=== PATIENT | female | born 1980 | race Caucasian/White ===

== ENCOUNTER 2021-02-01 14:17 | Emergency (ER) | payer OTHER ==
[~2021-02-01] VITALS: Ht 160 cm; Wt 57.8 kg
[2021-02-01] MEDS ORDERED: LIDOCAINE 2%/EPI 1:100,000 20 ML VIAL. IJ ONE (16:45)
--- NOTE | 2021-02-01 17:21 | PHYS DOC ---
Past History Past Medical History: Abscess Past Surgical History: No Surgical History Alcohol Use: None General Adult EDM: Chief Complaint: SKIN PROBLEM HPI: HPI: Patient is a 41 year old female who presents with abscess on her genitalia. Patient reports a history of Bartholin gland cyst in the past. She states this one presented 3-4 days ago. She rates her pain 9/10 and nonradiating. She reports associated cramping near the area of swelling. She denies fever, chills, dysuria, hematuria or any drainage thus far. Review of Systems: Review of Systems: ROS negative except as mentioned in HPI. Current Medications: Current Meds: Current Medications Medications (Trade) Dose Ordered Sig/Evy Start Time Stop Time Status Last Admin Dose Admin Lidocaine/ Epinephrine (Xylocaine 2%-Epi 1:100,000) 20 ml 1X ONCE 02/01/21 16:45 02/01/21 16:46 DC 02/01/21 16:43 20 ML Allergies: Allergies: Allergies Coded Allergies Type Severity Reaction Last Updated Verified No Known Drug Allergies 02/01/21 No Physical Exam: PE: Constitutional: Well developed, well nourished, patient appears uncomfortable on exam bed, non-toxic appearance. Cardiovascular: Heart rate regular rhythm, no murmur. Lungs & Thorax: Bilateral breath sounds clear to auscultation. Abdomen: Bowel sounds normal, soft, no tenderness, no masses, no pulsatile masses. Skin: Warm, dry, no erythema, no rash. Genital: Mons pubis and labia with appropriate and symmetrical hair distribution. No rash or vesicular lesions appreciated. Left lower labia swollen with induration 3cm x 8cm. Exquisitely tender. No drainage or discharge, no erythema. Current Patient Data: Vital Signs: Vital Signs Date Time Temp Pulse Resp B/P (MAP) Pulse Ox O2 Delivery O2 Flow Rate FiO2 02/01/21 17:54 80 16 132/70 (90) 97 Room Air 02/01/21 16:19 98.8 115 18 143/92 (109) 99 Heart Score: C/O Chest Pain: No Course & Med Decision Making: Course & Med Decision Making Pertinent Labs and Imaging studies reviewed. (See chart for details) 41-year-old female with history of vaginal cysts presents with a vaginal cyst. Patient has had to have them drained before. She denies fever, chills and has no other signs of systemic infection. No work catheters are available in the department, however I&D was performed to drain abscess and keep it open until more definitive management can be obtained. Patient is provided with a list of women's health clinics in the formerly [facility] and nearby areas for further care. Patient understands and is agreeable to discharge plan. Dragon Disclaimer: Dragon Disclaimer: This electronic medical record was generated, in whole or in part, using a voice recognition dictation system. Incision and Drainage Indication: Labial abscess Procedure: The patient was positioned appropriately and the skin over the incision site was cleansed with chlorhexidine swabs. Local anesthesia was 6 cc 2% lidocaine with epinephrine. Two incisions were then made over the left lower labia and approximately 4 cc purulent material was expressed. The drainage cavity was then kept open using packing gauze. The patients tetanus status was up-to-date prior to procedure. The patient tolerated the procedure very well. Complications: No complications Departure Departure: Impression: Primary Impression: Vulvar abscess Disposition: HOME / SELF CARE / HOMELESS Condition: STABLE Referrals: TORSTEN RICE MD (PCP) Patient Instructions: Abscess, [id number] Additional Instructions: [facility] Location ([facility]) [address] [place] [address] Call: [phone] [facility] Location [address] [place] [address] Call: [phone] [facility] Location [address] [place] [address] Call: [phone] [place] Location [address] [place] [address] Call: [phone] [facility] [address] [place] [address] Call: [phone] Scripts Tramadol Hcl (TRAMADOL HCL) 50 Mg Tablet 50 MG PO PRN Q6HRS PRN for PAIN for 3 Days, #12 TAB Prov: LEILANI BLACKMON 02/01/21 Clindamycin Hcl (CLINDAMYCIN HCL) 300 Mg Capsule 1 CAP PO QID for abscess for 7 Days, #28 CAP Prov: LEILANI BLACKMON 02/01/21 Amoxicillin/Potassium Clav (AMOX TR-K CLV 875-125 MG TAB) 1 Each Tablet 1 TAB PO BID for abscess for 7 Days, #14 TAB Prov: LEILANI BLACKMON 02/01/21 LEILANI BLACKMON Feb 01, 2021 17:21
[2021-02-01] MEDS ORDERED: DIPH,PERTUSS(ACELL),TET VAC/PF 0.5 ML SYRINGE. VAX IM ONE (17:45)
[2021-02-01] MEDS ORDERED: CLIN-95 PO (17:46)
[2021-02-01] MEDS ORDERED: AMOX1TAB11 PO (17:46)
[2021-02-01] MEDS ORDERED: TRAM50TA PO (17:52)
[2021-02-01 17:54] VITALS: BP 132/70
== END 2021-02-01 17:55 | disposition home or self-care (01) ==
LOC: ER 14:17
DX: N76.4 Abscess of vulva (principal)
CPT/HCPCS: 56405; 90471; 90715; 99284